=== PATIENT | female | born 1990 | race Caucasian/White ===

== ENCOUNTER → 2017-02-09 | Outpatient (CLI) | payer MEDICAID ==
[~2017-02-09] VITALS: Ht 154.9 cm; Wt 63.5 kg
== END | disposition home or self-care (01) ==
LOC: Rad HDHVI 14:17
PROVIDERS: ATTEND Internal Medicine Cardiovascular Disease
DX: Z01.810 Encounter for preprocedural cardiovascular examination (principal); R06.02 Shortness of breath; R07.89 Other chest pain; R42 Dizziness and giddiness; L05.91 Pilonidal cyst without abscess; N92.6 Irregular menstruation, unspecified; R53.83 Other fatigue
CPT/HCPCS: 93017; 93306

== ENCOUNTER 2018-06-02 20:46 | Emergency (ER) | payer MEDICAID ==
[~2018-06-02] VITALS: Ht 154.9 cm; Wt 78.5 kg
[2018-06-02 21:47] VITALS: BP 124/73
[2018-06-02 23:21] LABS: Basophils # (auto) 0 uL; Basophils % (auto) 0.4 % (0.0-2.0); Eosinophils # (auto) 0.1 uL; Hemoglobin 11.2 g/dL (12.2-16.2); Lymphocytes # (auto) 1.7 uL; Lymphocytes % (auto) 23.3 % (10.0-50.0); Monocytes # (auto) 0.6 uL
[2018-06-02 23:24] LABS: Eosinophils % (auto) 1.5 % (0.0-7.0); Hematocrit 33.4 % (36.0-46.0); Mean Corpuscular Hemoglobin 25.6 pg (28.0-32.0); Mean Corpuscular Hgb Conc. 33.4 g/dL (32.0-36.0); Mean Corpuscular Volume 76.4 fL (80.0-100.0); Monocytes % (auto) 8.7 % (0.0-12.0); Neutrophils # (auto) 4.9 uL; Neutrophils % (auto) 66.1 % (37.0-80.0); Nucleated Red Blood Cells % 0.1 %; Platelet Count (auto) 207 10^3/uL (140-450); Red Blood Cells 4.38 10^6/uL (4.0-5.20); White Blood Cell 7.4 10^3/uL (4.4-10.8)
[2018-06-02 23:35] LABS: Calcium 8.6 mg/dL (8.5-10.1); Potassium 3.7 mmol/L (3.5-5.1)
[2018-06-02 23:46] LABS: Bilirubin, Total 0.4 mg/dL (0.2-1.0); Total Protein 8.1 g/dL (6.4-8.2)
== END 2018-06-03 04:57 | disposition home or self-care (01) ==
LOC: ER 20:46
DX: Z20.811 Contact with and (suspected) exposure to meningococcus (principal); R51 Headache
CPT/HCPCS: 36415; 70450; 80053; 85025; 87804

== ENCOUNTER 2019-01-03 21:50 | Emergency (ER) | payer MEDICAID ==
[~2019-01-03] VITALS: Ht 154.9 cm; Wt 73.0 kg
[2019-01-03] MEDS ORDERED: TETANUS-DIPTH-ACEL PERTUSSIS 0.5ML SYRG IM ONE (23:45)
[2019-01-03 23:51] VITALS: BP 111/41
== END 2019-01-04 01:17 | disposition home or self-care (01) ==
LOC: ER 21:50
DX: S50.812A Abrasion of left forearm, initial encounter (principal); W45.8XXA Other foreign body or object entering through skin, initial encounter; Y93.89 Activity, other specified; Y99.8 Other external cause status; Y92.89 Other specified places as the place of occurrence of the external cause
CPT/HCPCS: 90471; 90715

== ENCOUNTER 2019-11-03 02:32 | Emergency (ER) | payer MEDICAID, OTHER ==
[~2019-11-03] VITALS: Ht 152.4 cm; Wt 70.3 kg
[2019-11-03 05:37] VITALS: BP 132/62
== END 2019-11-03 05:30 | disposition home or self-care (01) ==
LOC: ER 02:32
DX: S63.502A Unspecified sprain of left wrist, initial encounter (principal); S93.402A Sprain of unspecified ligament of left ankle, initial encounter; X58.XXXA Exposure to other specified factors, initial encounter; Y93.89 Activity, other specified; Y92.89 Other specified places as the place of occurrence of the external cause; Y99.8 Other external cause status
CPT/HCPCS: 29125; 73030; 73070; 73110